=== PATIENT | female | born 2005 | race Caucasian/White ===

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

== ENCOUNTER → 2025-07-21 | Outpatient (CLI) | payer OTHER, SELFPAY ==
--- NOTE | 2025-07-21 16:53 | RAD_ITS ---
PROCEDURE: LEFT HAND MIN 3 VIEWS 07/21/2025 REASON FOR EXAM: PAIN TECHNIQUE: Procedure Code: ARTI Modality: DX Procedure: HAND MIN 3 VIEWS COMPARISON: None. FINDINGS: No acute fracture or dislocation. Alignment is anatomic. Preserved joint spaces. No aggressive osseous lesion. No marked soft tissue swelling or radiopaque foreign body. RAD/Hand Min 3 Views IMPRESSION: No acute fracture or dislocation. No radiopaque foreign body. Reading Location: [id number]
== END | disposition home or self-care (01) ==
LOC: MTRAD 16:53
PROVIDERS: PCP Family Medicine; Referring Provider Physician Assistant; Visit Provider Physician Assistant
DX: S69.92XA Unspecified injury of left wrist, hand and finger(s), initial encounter (principal)
CPT/HCPCS: 73130